=== PATIENT | female | born 1985 | race Caucasian/White ===

== ENCOUNTER 2017-02-24 13:44 | Emergency (ER) | payer OTHER ==
[2017-02-24 14:09] VITALS: BP 121/77
== END 2017-02-24 16:08 | disposition left against medical advice (07) ==
LOC: ED 13:44
DX: Z53.21 Procedure and treatment not carried out due to patient leaving prior to being seen by health care provider (principal)

== ENCOUNTER 2018-12-23 11:50 | Day surgery (SDC) | payer OTHER ==
[2018-12-23] MEDS ORDERED: fentaNYL 100 MCG/2 ML VIAL IVP ONE (11:51)
[2018-12-23] MEDS ORDERED: PROPOFOL 200 MG/20 ML VIAL IVP ONE (11:51)
[2018-12-23] MEDS ORDERED: MIDAZOLAM 2 MG/2 ML VIAL IVP ONE (11:51)
[2018-12-23] MEDS ORDERED: KETOROLAC 30 MG/ML VIAL IVP ONE (11:51)
[2018-12-23] MEDS ORDERED: LACTATED RINGERS 1,000 ML IV ONE ×2 (12:14→14:29)
[2018-12-23 12:23] LABS: HCG UR QUAL NEGATIVE
--- NOTE | 2018-12-23 13:04 | ANESTHESIA ---
Pre-Anesthesia VS, & Labs - Diagnosis cervical dysplagia - Procedure Leep Vital Signs: Temp Pulse Resp BP Pulse Ox 36.9 C 54 L 14 120/81 H 97 12/23/18 12:14 12/23/18 12:14 12/23/18 12:14 12/23/18 12:14 12/23/18 12:14 Height 5 ft 4 in Weight (kg) 78.47 kg Body Mass Index 26.9 - NPO >8 hours - Is Patient ?: No Home Medications and Allergies Home Medications: Ambulatory Orders Lidocaine 1 each TP PRN PRN 12/17/18 Citalopram [CeleXA] 20 mg PO DAILY 02/24/17 Lidocaine 1 each TP PRN PRN 12/17/18 Allergies/Adverse Reactions: Allergies Allergy/AdvReac Type Severity Reaction Status Date / Time coconut Allergy Rash Verified 12/17/18 13:02 Anes History & Medical History - Anesthetic History Anesthesia Complications: reports: No previous complications - Medical History Cardiovascular: reports: None Pulmonary: reports: None Gastrointestinal: reports: None Urinary: reports: None Neuro: reports: Migraines Musculoskeletal: reports: None Endocrine/Autoimmune: reports: None Skin: reports: Other Smoking Status: Former smoker (vapes now) - Surgical History Gynecologic: section Exam General: Alert Dental: WNL Mouth Opening: Greater than 4 Fingerbreadths Mallampati classification: II Thyromental Distance: greater than 6 cm Respiratory: Lungs clear Cardiovascular: Regular rate, Normal S1, Normal S2 Mental/Cognitive Status: Alert/Oriented X3 Plan Anesthesia Type: General Consent for Procedure(s) Verified and Reviewed: Yes Code Status: Attempt Resuscitation ASA classification: 2-Mild systemic disease Is this case an emergency?: No
[2018-12-23] MEDS ORDERED: LIDOCAINE 1%-EPI 1:100000 20 ML MDV ONE (13:57)
[2018-12-23] MEDS ORDERED: SILVER NITRATE APPLICATOR TOP ONE ×2 (13:57→14:12)
[2018-12-23] MEDS ORDERED: LIDOCAINE 1%-EPI 1:100000 20 ML MDV SUBQ ONE (14:12)
[2018-12-23] MEDS ORDERED: HYDROmorphone 0.5 MG/0.5 ML SYRINGE IVP PRN (14:30)
[2018-12-23] MEDS ORDERED: ONDANSETRON 4 MG/2 ML VIAL IVP PRN (14:30)
[2018-12-23] MEDS ORDERED: oxyCODONE 5 MG TABLET PO PRN (14:30)
[2018-12-23 14:31] VITALS: BP 117/57
--- NOTE | 2018-12-23 14:39 | OPERATIVE REPORT ---
Operative Report - General Procedure Date: 12/23/18 Planned Procedure: exam under anesthesia, looped electrode excision procedure Pre-Op Diagnosis: atypical glandular cells on colposcopy Procedure Performed: same as above Post Op Diagnosis: same as above - Procedure Note Primary Surgeon: Malick Lott Anesthesia Provider: Adrianne Elizondo Anesthesia Technique: Local, MAC Pathology: 1. LEEP specimen 2. ECC IV Fluids (mL): 500 Estimated Blood Loss (mL): 20 Urine Output (mL): 0 Indications: atypical glandular cells on colposcopy; cytologic-histologic discrepancy Findings: small anteverted uterus, large ectropion, receded into os Complications: None. - Other Other Information/Narrative: After informed consent was assured, the patient was moved to the operating room with IV fluids running. Monitored anesthesia care was initiated. The patient was positioned in low dorsal lithotomy. A surgical timeout was performed. A grounded speculum was placed in the vagina, and the transformation zone was visualized. A paracervical block was performed with 1% lidocaine with epinephrine, 22 mL in total. At a power of 60, a looped electrode was used to excise beyond the borders of the transformation zone in a single vertical pass. The specimen was retrieved with long pick ups and passed off the field. A curette was used to obtain endocervical curettage. The surgical bed was cauterized with the ball tip electrode. Monsel's was then applied to the surgical bed. Good hemostasis was achieved. All instruments were removed from the vagina. Surgical counts were correct. The patient was awoken and moved back to the post-anesthesia care unit in stable condition. No complications were appreciated.
== END 2018-12-23 11:51 | disposition home or self-care (01) ==
LOC: SDS 11:50
PROVIDERS: ATTEND Obstetrics & Gynecology
PROC: 0UBC7ZX Excision of Cervix, Via Natural or Artificial Opening, Diagnostic (ICD-10-PCS; principal; 2018-12-23 14:15)
DX: C53.0 Malignant neoplasm of endocervix (principal); F17.290 Nicotine dependence, other tobacco product, uncomplicated
CPT/HCPCS: 57460; 81025; J7120